=== PATIENT | female | born 1995 | race American Indian/Alaskan Native ===

== ENCOUNTER 2017-02-17 14:44 | Outpatient (CLI) | payer MEDICAID ==
[2017-02-17 15:11] VITALS: BP 110/52
[2017-02-17] MEDS ORDERED: LACTATED RINGERS 500 ML IV ONE (15:21)
--- NOTE | 2017-02-18 09:07 | Ultrasound Report ---
ULTRASOUND OB LIMITED History: well being Technique: Transabdominal ultrasound with Doppler interrogation. Gestation: Single Position: Cephalic Placenta: Anterior, right lateral Placental Grade: 1 Heart Rate: 152 BPM
== END 2017-02-17 16:50 | disposition home or self-care (01) ==
LOC: TRG 14:44
PROVIDERS: ATTEND Obstetrics & Gynecology
DX: O47.03 False labor before 37 completed weeks of gestation, third trimester (principal); Z3A.32 32 weeks gestation of pregnancy
CPT/HCPCS: 59025; 76815

== ENCOUNTER 2017-03-24 11:31 | Outpatient (CLI) | payer MEDICAID ==
[2017-03-24 11:48] VITALS: BP 109/78
[2017-03-24 13:08] LABS: Bilirubin,Urine NEG (Negative); Blood,Urine NEG (Negative); Ketones,Urine NEG (Negative); Leukocyte Esterase,Urine NEG (Negative); Mucus,Urine FEW /HPF; Nitrite,Urine NEG (Negative)
== END 2017-03-24 13:30 | disposition home or self-care (01) ==
LOC: TRG 11:31
PROVIDERS: ATTEND Obstetrics & Gynecology
DX: O47.1 False labor at or after 37 completed weeks of gestation (principal); Z3A.37 37 weeks gestation of pregnancy
CPT/HCPCS: 59025; 81001

== ENCOUNTER 2017-03-25 02:52 | Inpatient (IN) | payer MEDICAID ==
[2017-03-25] MEDS ORDERED: ePHEDrine SULFATE IV PRN ×2 (03:24→04:47)
[2017-03-25] MEDS ORDERED: STADOL IV PRN (03:24)
[2017-03-25] MEDS ORDERED: LACTATED RINGERS 2,000 ML ONE (03:25)
[2017-03-25] MEDS ORDERED: STADOL ONE (03:26)
[2017-03-25] MEDS: LACTATED RINGERS 1,000 ML IV SCH ×3 (03:30→05:00)
[2017-03-25] MEDS ORDERED: PITOCin/NS 20 UNIT/1000ML DRIP 20 UNITS/1,000 ML BAG IV SCH (04:00)
[2017-03-25 04:17] LABS: Hemoglobin 11.8 gm/dl (10.1-14.3); Mean Corpuscular HGB Conc 34 % (30-34); Mean Corpuscular Hemoglobin 31 pg (28-32); Mean Corpuscular Volume 92 fl (79-97); Platelet Count 175 K/mm3 (140-440); Red Blood Count 3.81 M/mm3 (3.65-5.03); Red Cell Distribution Width 13.2 % (13.2-15.2); White Blood Count 10.8 K/mm3 (4.5-11.0)
[2017-03-25] MEDS ORDERED: ePHEDrine SULFATE ONE (04:18)
[2017-03-25] MEDS ORDERED: NARCAN 2 MG/2 ML IV PRN (04:47)
--- NOTE | 2017-03-25 04:47 | Anesthesia Consultation ---
Anesthesia Consult and Med Hx Date of service: 03/25/17 - Airway Anesthetic Teeth Evaluation: Good ROM Head & Neck: Adequate Mental/Hyoid Distance: Adequate Mallampati Class: Class II Intubation Access Assessment: Good - Pulmonary Exam CTA: Yes - Cardiac Exam Cardiac Exam: No Murmur - Pre-Operative Health Status ASA Pre-Surgery Classification: ASA2 Proposed Anesthetic Plan: Epidural - Pulmonary Hx Asthma: No COPD: No Hx Pneumonia: No - Cardiovascular System Hx Hypertension: No - Central Nervous System Hx Seizures: No Hx Psychiatric Problems: No - Endocrine Hx Renal Disease: No Hx End Stage Renal Disease: No Hx Hypothyroidism: No Hx Hyperthyroidism: No - Hematic Hx Anemia: No Hx Sickle Cell Disease: No - Other Systems Hx Alcohol Use: No
[2017-03-25] MEDS ORDERED: fentaNYL-BUPIV 2 MCG/ML-0.125% 200 MCG/100 ML BAG EPIDURAL SCH (05:00)
--- NOTE | 2017-03-25 08:27 | History and Physical Report ---
History of Present Illness Date of examination: 03/25/17 Date of admission: 03/25/17 02:59 History of present illness: 22 yo LMP EDC 04/10/17 @ 37.5 presented in active labor. Currently 8cm with BBOW and irregular contractions. First trimester entry into care. Uncomplicated course. She is GBS negative Past History Past Medical History: no pertinent history Past Surgical History: no surgical history [employer] History: abnormal PAP smear Family/Genetic History: none Social history: no significant social history - Obstetrical History Expected Date of Delivery: 04/10/17 Actual Gestation: 37 Week(s) 5 Day(s) : 2 Para: 1 Number of Living Children: 1 Medications and Allergies Allergies Allergy/AdvReac Type Severity Reaction Status Date / Time No Known Allergies Allergy Verified 02/23/16 10:31 Home Medications Medication Instructions Recorded Confirmed Last Taken Type No Known Home Medications [No 03/25/17 03/25/17 Unknown History Reported Home Medications] Active Meds: Active Medications Butorphanol Tartrate (Stadol) 2 mg IV Q2H PRN PRN Reason: Pain , Severe (7-10) Last Admin: 03/25/17 03:38 Dose: 2 mg Lactated Ringer's (Lactated Ringers) 1,000 mls @ 125 mls/hr IV DIRECT ARNULFO Last Admin: 03/25/17 05:00 Dose: 999 mls/hr Oxytocin/Sodium Chloride (Pitocin/Ns 20 Unit/1000ml Drip) 20 units in 1,000 mls @ 125 mls/hr IV DIRECT ARNULFO Fentanyl/Bupivacaine/Sodium Chlor (Fentanyl-Bupiv 2 Mcg/Ml-0.125%) 200 mcg in 100 mls @ 12 mls/hr EPIDURAL TITR ARNULFO PRN Reason: Protocol Last Admin: 03/25/17 04:59 Dose: 12 mls/hr Oxytocin/Sodium Chloride (Pitocin/Ns 30 Unit/500ml) 30 units in 500 mls @ 4 mls /hr IV TITR ARNULFO PRN Reason: Protocol Review of Systems All systems: negative Genitourinary: normal appearance, vaginal bleeding (bloody show), leakage of fluid (clear fluid), contractions Rectal Exam: deferred - Vital Signs Vital signs: Vital Signs Pulse BP 68 122/81 03/25/17 03:21 03/25/17 03:21 Temp Pulse Resp BP Pulse Ox 97.3 F L 58 L 18 104/57 91 03/25/17 07:00 03/25/17 08:12 03/25/17 07:00 03/25/17 08:12 03/25/17 07:11 - Physical Exam Breasts: Positive: deferred Lungs: Positive: Normal air movement Abdomen: Positive: normal appearance, soft - Obstetrical FHR: category 1 Uterine Contraction Monitor Mode: External Cervical Dilatation: 8 Cervical Effacement Percentage: 90 station: -1 Uterine Contraction Frequency (min): 2 Uterine Contraction Duration: 40-50 Uterine Contraction Pattern: Regular Uterine Tone Measurement Phase: Resting Uterine Contraction Intensity: Moderate Results Result Diagrams: 03/25/17 03:30 All other labs normal. Assessment and Plan A: IUP at term transitional labor P: AROM-clear fluid Pitocin augment Plan
[2017-03-25] MEDS ORDERED: PITOCin/NS 30 UNIT/500ML 30 UNITS/500 ML BAG IV SCH (09:00)
--- NOTE | 2017-03-25 09:28 | Procedure Note ---
OB Delivery Note - Delivery Date of Delivery: 03/25/17 (5-12oz male @ 0909) Surgeon: JAZMYN LOUISE Estimated blood loss: 100cc - Vaginal Delivery presentation: vertex Delivery position: OA Intrapartum events: none Delivery augmentation: rupture of membranes, pitocin Delivery monitor: external FHT, external uterine Route of delivery: Delivery placenta: spontaneous Delivery cord: 3 umbilical vessels Episiotomy: none Delivery laceration: none Anesthesia: epidural - Infant A at 1 minute: 9 at 5 minutes: 9 Gender: Male ( viable male over intact perineum. Placed skin to skin. Apgars 9/9. Spont. placenta. Pitocin infusing, bleeding small. No lacerations.)
[2017-03-25] MEDS ORDERED: TYLENOL PO PRN (09:30)
[2017-03-25] MEDS ORDERED: BENADRYL PO PRN (09:30)
[2017-03-25] MEDS ORDERED: MILK OF MAGNESIA PO PRN (09:30)
[2017-03-25] MEDS ORDERED: LANSINOH TP PRN (09:30)
[2017-03-25] MEDS ORDERED: PHENERGAN PR PRN (09:30)
[2017-03-25] MEDS ORDERED: DULCOLAX PR PRN (09:30)
[2017-03-25] MEDS ORDERED: TUCKS PAD TP PRN (09:30)
[2017-03-25] MEDS ORDERED: SODIUM CHLORIDE FLUSH SYRINGE 10 ML IV NR (10:00)
[2017-03-25] MEDS: MOTRIN PO SCH ×2 (10:35→18:23)
[2017-03-25] MEDS: PRENATAL VITAMIN PO SCH (10:35)
[2017-03-25] MEDS: NORCO 5/325 PO PRN (20:06)
[2017-03-25 22:30] LABS: Hemoglobin 10.9 gm/dl (10.1-14.3)
[2017-03-26] MEDS: MOTRIN PO SCH ×3 (00:20→08:16)
[2017-03-26] MEDS: NORCO 5/325 PO PRN (04:28)
--- NOTE | 2017-03-26 09:15 | Progress Note ---
Assessment and Plan O: VSS AF PP H/H: 10.9/32.0 A: Stable PP Day 1 P: D/c home Routine PP orders Subjective - Subjective Date of service: 03/26/17 Interval history: 22 yo LMP EDC 04/10/17 @ 37.5 presented in active labor. Currently 8cm with BBOW and irregular contractions. First trimester entry into care. Uncomplicated course. She is GBS negative Patient reports: appetite normal, voiding normally, pain well controlled, ambulating normally : doing well, nursing well Objective - Vital Signs Latest vital signs: Vital Signs Temp Pulse Resp Resp BP Pulse Ox 03/26/17 08:00 97.6 F 59 L 18 119/74 03/25/17 23:30 98.2 F 88 20 101/66 03/25/17 21:02 98.4 F 67 20 120/69 03/25/17 20:05 18 03/25/17 16:20 98 F 66 18 117/66 03/25/17 11:00 97.6 F 57 L 20 135/82 03/25/17 10:44 97.8 F 71 16 121/80 03/25/17 10:28 71 121/80 03/25/17 10:24 67 91 03/25/17 10:23 69 98 03/25/17 10:18 62 99 03/25/17 10:14 77 65 L 03/25/17 10:13 69 116/77 99 03/25/17 10:08 61 99 03/25/17 10:03 63 98 03/25/17 09:58 64 127/85 100 03/25/17 09:53 67 100 03/25/17 09:48 62 100 03/25/17 09:45 97.4 F L 73 18 128/89 03/25/17 09:43 73 128/89 03/25/17 09:29 65 126/76 03/25/17 09:28 142/95 Intake and Output 03/25/17 03/26/17 03/26/17 22:59 06:59 14:59 Intake Total 730 480 Output Total 1000 400 Balance -270 80 Intake: IV 250 PITOCin/NS 20 UNIT/1000ML 250 DRIP 20 units In 1,000 ml @ 125 mls/hr IV DIRECT ARNULFO Rx#:[id number] Oral 480 480 Output: Urine 1000 400 Indwelling Catheter 400 Void 600 400 Other: Total, Intake Amount 480 240 Total, Output Amount 600 400 # Voids Void 1 - Exam Breasts: Present: deferred Abdomen: Present: normal appearance, soft. Absent: distention, tenderness Uterus: Present: normal, firm, fundal height below umbilicus. Absent: bogginess , tenderness Extremities: Present: normal, edema (trace)
--- NOTE | 2017-03-26 09:17 | Discharge Summary ---
Providers - Providers Date of Admission: 03/25/17 02:59 Date of discharge: 03/26/17 Attending physician: BOWEN KOROMA MD Primary care physician: BOWEN KOROMA MD Hospitalization Reason for admission: active labor, IUP at term Delivery: Laceration: none complications: none Discharge diagnosis: IUP at term delivered baby: male Condition at discharge: Good Disposition: DC-01 TO HOME OR SELFCARE Plan - Discharge Medications Prescriptions: Ibuprofen [Motrin 600 MG tab] 600 mg PO Q6H PRN #40 tablet PRN Reason: Pain - Provider Discharge Summary Activity: routine, no sex for 6 weeks, no heavy lifting 4 weeks, no strenuous exercise Diet: routine Instructions: routine Additional instructions: [] Smoking cessation referral if applicable(refer to patient education folder for contact #) [] Refer to [facility]'s [facility] Booklet Call your doctor immediately for: * Fever > 100.5 * Heavy vaginal bleeding ( >1 pad per hour) * Severe persistent headache * Shortness of breath * Reddened, hot, painful area to leg or breast * Drainage or odor from incision. * Keep incision clean and dry at all times and follow doctor's instructions regarding bathing/showering - Follow up plan Follow up: JAZMYN LOUISE CNM [Advanced Practice Nurse] - (Call office and schedule circumcison. RTO 4 week )
--- NOTE | 2017-03-26 10:56 | Progress Note ---
Subjective Date of service: 03/26/17 Interval history: 1st day after normal vaginal delivery Patient is in the bed, comfortable. Pain is well controlled with pain meds. Ambulated well. No residual neurological deficit. No anesthesia complications Objective - Constitutional Vitals: Vital Signs - 12hr 03/25/17 03/26/17 23:30 08:00 Temperature 98.2 F 97.6 F Pulse Rate 88 59 L Respiratory 20 18 Rate Blood Pressure 101/66 119/74 - Labs CBC & Chem 7: 03/25/17 22:04
[2017-03-26] MEDS: PRENATAL VITAMIN PO SCH (12:47)
[2017-03-26 13:01] VITALS: BP 116/69
== END 2017-03-26 13:45 | disposition home or self-care (01) | DRG 775 ==
LOC: TRG 02:52 → LD 02:59 → OB 11:47
PROVIDERS: ADMIT Obstetrics & Gynecology; ATTEND Obstetrics & Gynecology
PROC: 00HU33Z Insertion of Infusion Device into Spinal Canal, Percutaneous Approach (ICD-10-PCS; principal; 2017-03-25)
PROC: 10907ZC Drainage of Amniotic Fluid, Therapeutic from Products of Conception, Via Natural or Artificial Opening (ICD-10-PCS; principal; 2017-03-25)
PROC: 10E0XZZ Delivery of Products of Conception, External Approach (ICD-10-PCS; principal; 2017-03-25)
DX: O80 Encounter for full-term uncomplicated delivery (principal); Z3A.37 37 weeks gestation of pregnancy; Z37.0 Single live birth
CPT/HCPCS: 36415; 85014; 85018; 85027; 86850; 86900; 86901; 99211; A6250; G0463; J0595; J2590; J7120